=== PATIENT | female | born 1990 | race Two or more races ===

== ENCOUNTER 2023-01-18 12:38 | Inpatient (IN) | payer MEDICAID ==
[~2023-01-18] VITALS: Ht 162.6 cm; Wt 110.1 kg
[~2023-01-18 12:38] MED LIST: PREN1TAB71 OR
[2023-01-18 13:28] LABS: Basophils # (auto) 0 10 ^3/uL (0-0.2); Basophils % (auto) 0.2 % (0.0-2.0); Eosinophils # (auto) 0 10 ^3/uL (0-0.8); Eosinophils % (auto) 0.1 % (0.0-7.0); Hematocrit 45.2 % (36.0-46.0); Hemoglobin 15.2 g/dL (12.2-16.2); Lymphocytes # (auto) 1.3 10 ^3/uL (0.4-5.4); Lymphocytes % (auto) 7.9 % (10.0-50.0); Mean Corpuscular Hemoglobin 29.8 pg (28.0-32.0); Mean Corpuscular Hgb Conc. 33.6 g/dL (32.0-36.0); Mean Corpuscular Volume 88.9 fL (80.0-100.0); Monocytes # (auto) 0.5 10 ^3/uL (0-1.3); Monocytes % (auto) 3.1 % (0.0-12.0); Neutrophils # (auto) 14.4 10 ^3/uL (1.6-8.6); Neutrophils % (auto) 88.7 % (37.0-80.0); Nucleated Red Blood Cells % 0.5 %; Red Blood Cells 5.09 10^6/uL (4.0-5.20); Red Cell Distribution Width 13.1 % (11.8-14.3); White Blood Cell 16.2 10^3/uL (4.4-10.8)
[2023-01-18 13:45] LABS: Albumin 4.1 g/dL (3.4-5.0); Calcium 9.3 mg/dL (8.5-10.1); Potassium 4.1 mmol/L (3.5-5.1)
[2023-01-18 13:54] LABS: BUN/Creatinine Ratio 16.4 (10.0-20.0); Bilirubin, Total 0.7 mg/dL (0.2-1.0); Total Protein 7.7 g/dL (6.4-8.2)
[2023-01-18] MEDS ORDERED: cefTRIAXone 1GM/50ML D5W 50 ML IV ONE (14:30)
[2023-01-18] MEDS ORDERED: metroNIDAZOLE 500MG/100ML 100 ML IV ONE (14:30)
[2023-01-18] MEDS ORDERED: ONDANSETRON HCL 4 MG/2 ML VIAL IV PRN (15:30)
[2023-01-18] MEDS ORDERED: ACETAMINOPHEN 325 MG TAB PO PRN (15:30)
[2023-01-18] MEDS ORDERED: KETOROLAC TROMETH 30 MG/ML 1ML VIAL IV ONE (15:30)
[2023-01-18] MEDS: SODIUM CHLORIDE 0.9% 1,000 ML IV SCH ×2 (15:57→23:50)
[2023-01-18] MEDS ORDERED: PANTOPRAZOLE 40 MG/10 ML VIAL INJ IV ONE (16:00)
[2023-01-18 16:05] LABS: Cholesterol 170 mg/dL (< 200); Triglycerides 149 mg/dL (< 150)
[2023-01-18 16:14] LABS: HDL Cholesterol 50 mg/dL (40-59); LDL Cholesterol 98 mg/dL (< 100); Lipase 23760 U/L (73-393)
[2023-01-18 17:00] VITALS: PULSE 90; RESP 18; O2SAT 98
[2023-01-18 21:20] VITALS: PULSE 67; RESP 18; O2SAT 100
[2023-01-18 22:00] VITALS: BP 143/83; PULSE 59; RESP 20; TEMP 98.1; O2SAT 100
[2023-01-18 22:08] VITALS: BP 146/83; PULSE 59; RESP 20; TEMP 98.1; O2SAT 100
[2023-01-18] MEDS: metroNIDAZOLE 500MG/100ML 100 ML IV SCH (23:25)
[2023-01-19] VITALS (7 sets, daily range): BP systolic 107–120; BP diastolic 49–78; PULSE 74–93; RESP 20–22; TEMP 98.2–98.8; O2SAT 95–100
[2023-01-19] MEDS: metroNIDAZOLE 500MG/100ML 100 ML IV SCH ×3 (05:43→22:11)
[2023-01-19 06:32] LABS: Basophils # (auto) 0 10 ^3/uL (0-0.2); Basophils % (auto) 0.5 % (0.0-2.0); Eosinophils # (auto) 0.1 10 ^3/uL (0-0.8); Hematocrit 39.4 % (36.0-46.0); Hemoglobin 13.6 g/dL (12.2-16.2); Lymphocytes # (auto) 2.1 10 ^3/uL (0.4-5.4); Mean Corpuscular Hemoglobin 30.6 pg (28.0-32.0); Mean Corpuscular Hgb Conc. 34.5 g/dL (32.0-36.0); Mean Corpuscular Volume 88.6 fL (80.0-100.0); Monocytes # (auto) 0.4 10 ^3/uL (0-1.3); Monocytes % (auto) 4.4 % (0.0-12.0); Neutrophils # (auto) 7.2 10 ^3/uL (1.6-8.6); Neutrophils % (auto) 73.1 % (37.0-80.0); Nucleated Red Blood Cells % 0.1 %; Red Blood Cells 4.45 10^6/uL (4.0-5.20); Red Cell Distribution Width 13.2 % (11.8-14.3); White Blood Cell 9.9 10^3/uL (4.4-10.8)
[2023-01-19 06:42] LABS: Calcium 8.4 mg/dL (8.5-10.1); Potassium 3.7 mmol/L (3.5-5.1)
[2023-01-19 06:48] LABS: Albumin 3.4 g/dL (3.4-5.0); BUN/Creatinine Ratio 16.7 (10.0-20.0); Bilirubin, Total 0.6 mg/dL (0.2-1.0); Total Protein 6.4 g/dL (6.4-8.2)
[2023-01-19 07:16] LABS: Urine Bacteria FEW /hpf (None Seen); Urine Blood Negative /uL (Negative); Urine Clarity HAZY (Clear); Urine Color Yellow (Yellow); Urine Mucus FEW (None Seen); Urine Protein, UAD Negative (Negative); Urine Specific Gravity 1.015 (1.001-1.035); Urine Urobilinogen Normal (Negative); Urine WBC 62 /hpf (0 - 5); Urine pH 5.5 (5.0-8.0)
[2023-01-19] MEDS: cefTRIAXone 1GM/50ML D5W 50 ML IV SCH (09:58)
[2023-01-19] MEDS ORDERED: ENOXAPARIN SOD 40 MG/0.4 ML SYRINGE SC SCH (10:00)
[2023-01-19] MEDS: PANTOPRAZOLE 40 MG/10 ML VIAL INJ IV SCH (10:02)
[2023-01-19] MEDS: SODIUM CHLORIDE 0.9% 1,000 ML IV SCH ×2 (11:31→16:30)
[2023-01-20] MEDS: SODIUM CHLORIDE 0.9% 1,000 ML IV SCH ×3 (00:50→17:58)
[2023-01-20 05:00] VITALS: BP 122/75; PULSE 73; RESP 18; TEMP 98.1; O2SAT 96
[2023-01-20] MEDS: metroNIDAZOLE 500MG/100ML 100 ML IV SCH ×3 (05:00→21:43)
[2023-01-20 06:33] LABS: Basophils # (auto) 0 10 ^3/uL (0-0.2); Basophils % (auto) 0.4 % (0.0-2.0); Eosinophils # (auto) 0.2 10 ^3/uL (0-0.8); Eosinophils % (auto) 1.9 % (0.0-7.0); Hematocrit 37.7 % (36.0-46.0); Hemoglobin 12.9 g/dL (12.2-16.2); Lymphocytes # (auto) 1.6 10 ^3/uL (0.4-5.4); Lymphocytes % (auto) 18.6 % (10.0-50.0); Mean Corpuscular Hemoglobin 30.1 pg (28.0-32.0); Mean Corpuscular Hgb Conc. 34.1 g/dL (32.0-36.0); Mean Corpuscular Volume 88.3 fL (80.0-100.0); Monocytes # (auto) 0.6 10 ^3/uL (0-1.3); Neutrophils # (auto) 6.4 10 ^3/uL (1.6-8.6); Neutrophils % (auto) 72.1 % (37.0-80.0); Red Blood Cells 4.27 10^6/uL (4.0-5.20); White Blood Cell 8.8 10^3/uL (4.4-10.8)
[2023-01-20 06:50] LABS: Albumin 2.8 g/dL (3.4-5.0); Calcium 8.3 mg/dL (8.5-10.1); Potassium 3.6 mmol/L (3.5-5.1)
[2023-01-20 06:54] LABS: BUN/Creatinine Ratio 18.4 (10.0-20.0); Bilirubin, Total 0.4 mg/dL (0.2-1.0); Total Protein 6.3 g/dL (6.4-8.2)
[2023-01-20 09:00] VITALS: BP 130/94; PULSE 74; RESP 15; TEMP 97.4; O2SAT 95
[2023-01-20] MEDS: PANTOPRAZOLE 40 MG/10 ML VIAL INJ IV SCH (10:33)
[2023-01-20] MEDS: cefTRIAXone 1GM/50ML D5W 50 ML IV SCH (10:33)
[2023-01-20] MEDS: ACETAMINOPHEN 325 MG TAB PO PRN ×2 (10:34→17:54)
[2023-01-20 12:57] VITALS: BP 129/74; PULSE 75; RESP 14; TEMP 98.9; O2SAT 96
[2023-01-20 16:54] VITALS: BP 115/73; PULSE 73; RESP 18; TEMP 98.2; O2SAT 96
[2023-01-20 20:00] VITALS: BP 98/57; PULSE 65; RESP 18; TEMP 97.7
[2023-01-20 21:43] VITALS: BP 98/57; PULSE 65; RESP 18; TEMP 97.7; O2SAT 100
[2023-01-21] VITALS (8 sets, daily range): BP systolic 94–137; BP diastolic 52–93; PULSE 60–76; RESP 17–18; TEMP 97.7–98.8; O2SAT 93–100
[2023-01-21] MEDS: ACETAMINOPHEN 325 MG TAB PO PRN ×3 (00:58→21:18)
[2023-01-21] MEDS: SODIUM CHLORIDE 0.9% 1,000 ML IV SCH ×3 (01:50→18:30)
[2023-01-21] MEDS: metroNIDAZOLE 500MG/100ML 100 ML IV SCH ×3 (05:25→21:18)
[2023-01-21 06:34] LABS: Basophils # (auto) 0.1 10 ^3/uL (0-0.2); Eosinophils # (auto) 0.1 10 ^3/uL (0-0.8); Hematocrit 38.2 % (36.0-46.0); Hemoglobin 13.1 g/dL (12.2-16.2); Lymphocytes # (auto) 1.7 10 ^3/uL (0.4-5.4); Lymphocytes % (auto) 25.4 % (10.0-50.0); Mean Corpuscular Hemoglobin 30.3 pg (28.0-32.0); Mean Corpuscular Hgb Conc. 34.2 g/dL (32.0-36.0); Mean Corpuscular Volume 88.6 fL (80.0-100.0); Monocytes # (auto) 0.5 10 ^3/uL (0-1.3); Monocytes % (auto) 7.4 % (0.0-12.0); Neutrophils # (auto) 4.3 10 ^3/uL (1.6-8.6); Neutrophils % (auto) 64.2 % (37.0-80.0); Nucleated Red Blood Cells % 0.1 %; Red Blood Cells 4.31 10^6/uL (4.0-5.20); Red Cell Distribution Width 13.1 % (11.8-14.3); White Blood Cell 6.7 10^3/uL (4.4-10.8)
[2023-01-21 06:52] LABS: Potassium 3.4 mmol/L (3.5-5.1)
[2023-01-21 07:02] LABS: BUN/Creatinine Ratio 18.4 (10.0-20.0); Bilirubin, Total 0.3 mg/dL (0.2-1.0); Calcium 8.4 mg/dL (8.5-10.1); Total Protein 6.6 g/dL (6.4-8.2)
[2023-01-21] MEDS ORDERED: POTASSIUM CHL 20 Meq TABLET PO ONE (07:45)
[2023-01-21] MEDS: cefTRIAXone 1GM/50ML D5W 50 ML IV SCH (09:00)
[2023-01-21] MEDS ORDERED: LIDOCAINE W/ EPINEPHRINE 1% 20ML VIAL ONE (10:00)
[2023-01-21] MEDS: PANTOPRAZOLE 40 MG/10 ML VIAL INJ IV SCH (10:00)
[2023-01-21] MEDS ORDERED: fentaNYL CITRATE 100 MCG/2 ML VL ONE (10:04)
[2023-01-21] MEDS ORDERED: MIDAZOLAM HCL 2MG/2ML 2ml VIAL (1mg/ml) ONE (10:05)
[2023-01-21] MEDS ORDERED: PROPOFOL 10 MG/ML 20 ML IV ONE (10:05)
[2023-01-21] MEDS ORDERED: MEPERIDINE HCL (50 MG/ML) 1 ML VIAL ONE (10:05)
[2023-01-21] MEDS ORDERED: DexAMETHasone SOD PHOS 10MG/1ML VIAL INJ ONE (10:05)
[2023-01-21] MEDS ORDERED: ceFAZolin 1GM/50ML 100 ML IV ONE (10:07)
[2023-01-21] MEDS ORDERED: PHENYLEPHRINE HCL 10 MG/ML VL IV ONE (10:15)
[2023-01-21 10:16] LABS: INR 1.01 (0.9-1.15); Prothrombin Time 10.6 sec (9.3-11.8)
[2023-01-21] MEDS ORDERED: ePHEDrine SULFATE 50 MG/ML AMP IV PRN (10:45)
[2023-01-21] MEDS ORDERED: MIDAZOLAM HCL 2MG/2ML 2ml VIAL (1mg/ml) IV PRN (10:45)
[2023-01-21] MEDS ORDERED: HYDROmorphone HCL 2 MG/ML VL/or syr IV PRN (10:45)
[2023-01-21] MEDS ORDERED: LABETALOL HCL 5 MG/ML 4ML SYRINGE IV PRN (10:45)
[2023-01-21] MEDS ORDERED: MORPHINE SULFATE 4 MG/ML SYR/VIAL IV PRN (10:45)
[2023-01-21] MEDS ORDERED: ONDANSETRON HCL 4 MG/2 ML VIAL IV PRN (10:45)
[2023-01-21 12:16] LABS: Hepatitis B Surface Antigen Negative (Negative)
[2023-01-21 12:17] LABS: Hepatitis A Ab IgM Negative; Hepatitis B Core IgM Negative; Hepatitis C Antibody Negative (Negative)
[2023-01-21 14:23] LABS: Hematocrit 38.1 % (36.0-46.0); Hemoglobin 12.8 g/dL (12.2-16.2); Mean Corpuscular Hemoglobin 30.1 pg (28.0-32.0); Mean Corpuscular Hgb Conc. 33.6 g/dL (32.0-36.0); Mean Corpuscular Volume 89.7 fL (80.0-100.0); Red Blood Cells 4.25 10^6/uL (4.0-5.20); Red Cell Distribution Width 13.3 % (11.8-14.3); White Blood Cell 10.9 10^3/uL (4.4-10.8)
[2023-01-21 14:29] LABS: Basophils % (manual) 0 (0.0-2.0); Blast Cells 0; Eosinophils % (manual) 0 (0-7); Metamyelocytes % 0; Myelocytes % 0; Promyelocytes % 0; Reactive Lymphocytes 0
[2023-01-21] MEDS: MORPHINE SULFATE INJ 2 MG/ml SYRG IV PRN ×2 (16:03→22:14)
[2023-01-21 16:05] LABS: Band Neutrophils % (manual) 4; Lymphocytes % (manual) 4 (10.0-50.0); Monocytes % (manual) 1 (0-12); Platelet Estimate Adequate; RBC Morphology Normal
[2023-01-22] MEDS: SODIUM CHLORIDE 0.9% 1,000 ML IV SCH ×2 (04:52→06:00)
[2023-01-22] MEDS: MORPHINE SULFATE INJ 2 MG/ml SYRG IV PRN ×2 (04:55→06:16)
[2023-01-22 05:00] VITALS: BP 120/71; PULSE 66; RESP 18; TEMP 98.1; O2SAT 100
[2023-01-22] MEDS: metroNIDAZOLE 500MG/100ML 100 ML IV SCH ×2 (05:10→13:53)
[2023-01-22 05:58] LABS: Basophils # (auto) 0 10 ^3/uL (0-0.2); Basophils % (auto) 0.2 % (0.0-2.0); Eosinophils # (auto) 0 10 ^3/uL (0-0.8); Hematocrit 38.1 % (36.0-46.0); Hemoglobin 12.7 g/dL (12.2-16.2); Lymphocytes # (auto) 1.3 10 ^3/uL (0.4-5.4); Lymphocytes % (auto) 10.8 % (10.0-50.0); Mean Corpuscular Hemoglobin 30.2 pg (28.0-32.0); Mean Corpuscular Hgb Conc. 33.3 g/dL (32.0-36.0); Mean Corpuscular Volume 90.7 fL (80.0-100.0); Monocytes # (auto) 0.5 10 ^3/uL (0-1.3); Monocytes % (auto) 4.6 % (0.0-12.0); Neutrophils # (auto) 9.8 10 ^3/uL (1.6-8.6); Neutrophils % (auto) 84.4 % (37.0-80.0); White Blood Cell 11.6 10^3/uL (4.4-10.8)
[2023-01-22 06:10] LABS: Albumin 2.9 g/dL (3.4-5.0); Potassium 3.9 mmol/L (3.5-5.1)
[2023-01-22 06:14] LABS: BUN/Creatinine Ratio 8.1 (10.0-20.0); Bilirubin, Total 0.3 mg/dL (0.2-1.0); Calcium 8.5 mg/dL (8.5-10.1); Total Protein 6.7 g/dL (6.4-8.2)
[2023-01-22 08:00] VITALS: BP 137/85; PULSE 65; RESP 20; TEMP 98.1; O2SAT 99
[2023-01-22 09:00] VITALS: BP 137/85; PULSE 65; RESP 20; TEMP 98.1; O2SAT 100
[2023-01-22] MEDS ORDERED: METR-344 PO (09:38)
[2023-01-22] MEDS: PANTOPRAZOLE 40 MG/10 ML VIAL INJ IV SCH (09:55)
[2023-01-22] MEDS: cefTRIAXone 1GM/50ML D5W 50 ML IV SCH (09:55)
[2023-01-22] MEDS: ACETAMINOPHEN 325 MG TAB PO PRN (10:04)
[2023-01-22] MEDS ORDERED: HYDR-4902 PO (12:54)
[2023-01-22 13:00] VITALS: BP 128/84; PULSE 71; RESP 16; TEMP 97.8; O2SAT 100
[2023-01-22 17:00] VITALS: BP 114/76; PULSE 78; RESP 20; TEMP 97.6; O2SAT 98
== END 2023-01-22 18:25 | disposition home or self-care (01) | DRG 263 ==
LOC: ER 12:38 → EDBD 12:38 → EDUNIT# 12:38 → OVERFLOW 15:32 → EAST 21:46
PROVIDERS: ADMIT Internal Medicine Pulmonary Disease; ATTEND Internal Medicine
PROC: 0FT44ZZ Resection of Gallbladder, Percutaneous Endoscopic Approach (ICD-10-PCS; principal; 2023-01-21 10:18)
DX: K80.10 Calculus of gallbladder with chronic cholecystitis without obstruction (principal); R65.11 Systemic inflammatory response syndrome (SIRS) of non-infectious origin with acute organ dysfunction; K85.90 Acute pancreatitis without necrosis or infection, unspecified; E66.01 Morbid (severe) obesity due to excess calories; E11.9 Type 2 diabetes mellitus without complications; R74.8 Abnormal levels of other serum enzymes; K80.20 Calculus of gallbladder without cholecystitis without obstruction; R74.01 Elevation of levels of liver transaminase levels; N39.0 Urinary tract infection, site not specified; Z68.41 Body mass index [BMI] 40.0-44.9, adult; K82.8 Other specified diseases of gallbladder
CPT/HCPCS: 36415; 74176; 76705; 78226; 80053; 80061; 80074; 81001; 81025; 83036; 83605; 83690; 84443; 84702; 85007; 85025; 85027; 85610; 85730; 86850; 86900; 86901; 87040; 96365; 96375; C9113; G0378; J0690; J0696; J1100; J1885; J2250; J2405; J2704; J3490